=== PATIENT | male | born 1965 | race Caucasian/White ===

== ENCOUNTER → 2016-10-12 | Outpatient (REF) | payer OTHER ==
[~2016-10-12] MED LIST: MOBI15TA PO
[2016-10-12 13:30] LABS: ALBUMIN 3.8 GM/DL (3.2-5.2); ALBUMIN/GLOBULIN RATIO 1.19 (1.00-1.93); ALKALINE PHOSPHATASE 61 U/L (45-117); ALT/SGPT 24 U/L (12-78); ANION GAP 9 MEQ/L (8-16); AST/SGOT 13 U/L (15-37); BILIRUBIN,TOTAL 0.7 MG/DL (0.2-1.0); BLOOD UREA NITROGEN 11 MG/DL (7-18); CALCIUM LEVEL 9.1 MG/DL (8.5-10.1); CARBON DIOXIDE LEVEL 25 MEQ/L (21-32); CHLORIDE LEVEL 105 MEQ/L (98-107); CHOLESTEROL LEVEL 153 MG/DL (<200); CREATININE FOR GFR 1.17 MG/DL (0.70-1.30); GLOMERULAR FILTRATION RATE > 60.0 (>56); GLUCOSE, FASTING 93 MG/DL (70-105); POTASSIUM SERUM 4.1 MEQ/L (3.5-5.1); SODIUM LEVEL 139 MEQ/L (136-145); TRIGLYCERIDES LEVEL 53 MG/DL (<150)
== END ==
LOC: M SFHCPLAZ 08:25
PROVIDERS: ATTEND Physician Assistant
DX: Z13.220 Encounter for screening for lipoid disorders (principal); Z12.5 Encounter for screening for malignant neoplasm of prostate

== ENCOUNTER → 2018-04-12 | Outpatient (REF) | payer OTHER ==
[2018-04-12 12:21] LABS: ALBUMIN 3.7 GM/DL (3.2-5.2); ALBUMIN/GLOBULIN RATIO 1.16 (1.00-1.93); ALKALINE PHOSPHATASE 64 U/L (45-117); ALT/SGPT 22 U/L (12-78); ANION GAP 9 MEQ/L (8-16); AST/SGOT 10 U/L (7-37); BILIRUBIN,TOTAL 0.5 MG/DL (0.2-1.0); BLOOD UREA NITROGEN 11 MG/DL (7-18); CALCIUM LEVEL 8.9 MG/DL (8.5-10.1); CARBON DIOXIDE LEVEL 26 MEQ/L (21-32); CHLORIDE LEVEL 105 MEQ/L (98-107); CHOLESTEROL LEVEL 158 MG/DL (<200); CREATININE FOR GFR 1.07 MG/DL (0.70-1.30); GLOMERULAR FILTRATION RATE > 60.0 (>56); GLUCOSE, FASTING 79 MG/DL (70-100); HDL CHOLESTEROL 50 MG/DL (>40); LDL CHOLESTEROL 88 MG/DL (<100); NON-HDL-C 108 MG/DL; POTASSIUM SERUM 4.5 MEQ/L (3.5-5.1); PSA SCREENING 1.5 NG/ML (< 4.0); SODIUM LEVEL 140 MEQ/L (136-145); TOTAL PROTEIN 6.9 GM/DL (6.4-8.2); TRIGLYCERIDES LEVEL 102 MG/DL (<150)
[2018-04-12 12:23] LABS: TOTAL 25(OH) VITAMIN D 30.7 NG/ML (30.0-100.0)
== END ==
LOC: M SFHCPLAZ 09:27
DX: Z13.220 Encounter for screening for lipoid disorders (principal); Z13.21 Encounter for screening for nutritional disorder; Z12.5 Encounter for screening for malignant neoplasm of prostate

== ENCOUNTER 2018-04-27 09:14 | Emergency (ER) | payer OTHER, BC ==
[~2018-04-27] VITALS: Ht 182.9 cm; Wt 104.5 kg
[2018-04-27 09:14] VITALS: BP 137/85
[2018-04-27] MEDS ORDERED: IBUP-1022 PO (09:22)
--- NOTE | 2018-04-27 10:10 | REP ---
Clinical: Trauma. Fall on ice. Technique: Internal rotation, external rotation, and Y view left shoulder . Findings: No acute fracture or dislocation. The acromioclavicular and glenohumeral joints are intact. No periarticular calcifications or degenerative changes are appreciated. Sub acromial space is normal. Surrounding soft tissues are unremarkable. Impression: Generalized age-related changes. No acute fracture or dislocation. Electronically Signed by Jose Juan Link MD 04/27/2018 10:01 A
--- NOTE | 2018-04-27 10:11 | REP ---
Clinical: Trauma. Fall on ice. Technique: AP and lateral views of the left humerus. Findings: Generalized age-related changes at the shoulder and elbow joint. No acute fracture or dislocation. No subcutaneous emphysema or foreign body. Impression: No acute fracture or dislocation. Electronically Signed by Jose Juan Link MD 04/27/2018 10:01 A
== END 2018-04-27 10:28 | disposition home or self-care (01) ==
LOC: M ED 09:14
DX: S40.012A Contusion of left shoulder, initial encounter (principal); W00.0XXA Fall on same level due to ice and snow, initial encounter; Y92.89 Other specified places as the place of occurrence of the external cause; Y99.0 Civilian activity done for income or pay

== ENCOUNTER 2018-05-21 11:37 | Emergency (ER) | payer BC, OTHER ==
[~2018-05-21] VITALS: Ht 182.9 cm; Wt 104.5 kg
[~2018-05-21 11:37] MED LIST changes: +IBUP-1022 PO
[2018-05-21] MEDS ORDERED: KETOROLAC 30 MG/ML VIAL (J1885) IM ONE (13:00)
[2018-05-21 13:19] LABS: BASO % 0.4 % (0.0-1.0); EOS # 0.2 10^3/uL (0.0-0.50); EOS % 1.7 % (0.0-3.0); HEMATOCRIT 44.7 % (42.0-52.0); HEMOGLOBIN 16.1 g/dl (13.5-17.5); LYMPH % 10.6 % (24.0-44.0); MEAN CORPUSCULAR HEMOGLOBIN 31.4 pg (27.0-33.0); MEAN CORPUSCULAR VOLUME 87.1 fl (80.0-96.0); MONO # 1.1 10^3/uL (0.0-0.8); MONO % 11.5 % (0.0-5.0); NEUTROPHILS # 7.2 10^3/uL (1.8-7.7); NEUTROPHILS % 75.5 % (36.0-66.0); PLATELET COUNT, AUTOMATED 310 10^3/uL (150-450); RED BLOOD COUNT 5.13 10^6/uL (4.30-6.10); WHITE BLOOD COUNT 9.6 10^3/uL (4.0-10.0)
[2018-05-21 13:46] LABS: ERYTHROCYTE SEDIMENTATION RATE 37 mm/hr (0-20)
[2018-05-21 13:46] LABS: BLOOD UREA NITROGEN 13 MG/DL (7-18); CALCIUM LEVEL 8.9 MG/DL (8.5-10.1); CARBON DIOXIDE LEVEL 26 MEQ/L (21-32); CHLORIDE LEVEL 101 MEQ/L (98-107); CREATININE FOR GFR 0.94 MG/DL (0.70-1.30); GLOMERULAR FILTRATION RATE > 60.0 (>56); GLUCOSE, FASTING 94 MG/DL (70-100); POTASSIUM SERUM 3.9 MEQ/L (3.5-5.1); SODIUM LEVEL 135 MEQ/L (136-145)
[2018-05-21 14:40] VITALS: BP 122/75
[2018-05-29] MEDS ORDERED: NORCOTAB PO (12:28)
== END 2018-05-21 15:33 | disposition home or self-care (01) ==
LOC: M ED 11:37
DX: R03.0 Elevated blood-pressure reading, without diagnosis of hypertension (principal); E87.1 Hypo-osmolality and hyponatremia; R79.82 Elevated C-reactive protein (CRP); R10.9 Unspecified abdominal pain; R19.7 Diarrhea, unspecified; R39.198 Other difficulties with micturition; K57.92 Diverticulitis of intestine, part unspecified, without perforation or abscess without bleeding; Z77.098 Contact with and (suspected) exposure to other hazardous, chiefly nonmedicinal, chemicals; Z79.1 Long term (current) use of non-steroidal anti-inflammatories (NSAID)
CPT/HCPCS: 36415; 80048; 81001; 85025; 85652; 86140; 87507; 96372; 99284; J1885

== ENCOUNTER 2018-05-24 11:13 | Inpatient (IN) | payer BC, OTHER ==
[~2018-05-24] VITALS: Ht 182.9 cm; Wt 100.5 kg
[2018-05-24 11:53] LABS: BASO % 0.4 % (0.0-1.0); EOS # 0.1 10^3/uL (0.0-0.50); EOS % 1.1 % (0.0-3.0); HEMATOCRIT 40.2 % (42.0-52.0); HEMOGLOBIN 14.5 g/dl (13.5-17.5); LYMPH % 9.3 % (24.0-44.0); MEAN CORPUSCULAR HEMOGLOBIN 31.6 pg (27.0-33.0); MEAN CORPUSCULAR HGB CONC 36.1 g/dl (32.0-36.5); MEAN CORPUSCULAR VOLUME 87.6 fl (80.0-96.0); MONO # 1.4 10^3/uL (0.0-0.8); MONO % 12.8 % (0.0-5.0); NEUTROPHILS # 8.3 10^3/uL (1.8-7.7); NEUTROPHILS % 75.9 % (36.0-66.0); PLATELET COUNT, AUTOMATED 323 10^3/uL (150-450); RED BLOOD COUNT 4.59 10^6/uL (4.30-6.10); WHITE BLOOD COUNT 10.9 10^3/uL (4.0-10.0)
[2018-05-24 12:02] LABS: APPEARANCE, URINE CLEAR (CLEAR); BACTERIA, URINE AUTO NEGATIVE (NEGATIVE); BILIRUBIN, URINE AUTO NEGATIVE (NEGATIVE); BLOOD, URINE BLOOD NEGATIVE (NEGATIVE); COLOR, URINE YELLOW (YELLOW); GLUCOSE, URINE (UA) AUTO NEGATIVE (NEGATIVE); KETONE, URINE AUTO TRACE mg/dL (NEGATIVE); LEUKOCYTE ESTERASE, URINE AUTO NEGATIVE (NEGATIVE); MUCUS, URINE SMALL (NEGATIVE); NITRITE, URINE AUTO NEGATIVE (NEGATIVE); PROTEIN, URINE AUTO NEGATIVE (NEGATIVE); RBC, URINE AUTO 3 /HPF (0-3); SPECIFIC GRAVITY URINE AUTO 1.013 (1.002-1.035); SQUAMOUS EPITHELIAL CELL UR AU 0 /HPF (0-6); UROBILINOGEN, URINE AUTO 0.2 mg/dL (0.0-2.0); WBC, URINE AUTO 1 /HPF (0-3)
[2018-05-24 12:13] LABS: ERYTHROCYTE SEDIMENTATION RATE 35 mm/hr (0-20)
[2018-05-24] MEDS ORDERED: MORPHINE 4 MG/ML 1ML VIAL/SYRINGE (J2270) IV ONE (12:15)
[2018-05-24] MEDS ORDERED: NS 1,000 ML IV ONE (12:15)
[2018-05-24 12:19] LABS: ALBUMIN 3.4 GM/DL (3.2-5.2); ALT/SGPT 27 U/L (12-78); BILIRUBIN,DIRECT 0.2 MG/DL (0.0-0.2); BILIRUBIN,TOTAL 0.8 MG/DL (0.2-1.0); BLOOD UREA NITROGEN 13 MG/DL (7-18); C REACTIVE PROTEIN QUANTITATIV 8.46 MG/DL (0.00-0.30); CALCIUM LEVEL 8.7 MG/DL (8.5-10.1); CARBON DIOXIDE LEVEL 22 MEQ/L (21-32); CHLORIDE LEVEL 105 MEQ/L (98-107); CREATININE FOR GFR 0.88 MG/DL (0.70-1.30); GLOMERULAR FILTRATION RATE > 60.0 (>56); GLUCOSE, FASTING 97 MG/DL (70-100); LIPASE 73 U/L (73-393); POTASSIUM SERUM 3.8 MEQ/L (3.5-5.1); SODIUM LEVEL 136 MEQ/L (136-145); TOTAL PROTEIN 6.6 GM/DL (6.4-8.2)
[2018-05-24] MEDS: GASTROGRAFIN SOLUTION 30ML PO SCH ×2 (12:37→13:10)
[2018-05-24] MEDS ORDERED: HYDROMORPHONE HCL 0.5 MG/ 0.5 ML SYRINGE (J1170 PER 1) IV ONE (13:45)
--- NOTE | 2018-05-24 15:29 | REP ---
CT abdomen and pelvis without IV but with oral contrast: History: Bilateral lower abdominal pain. Constipation. Urinary symptoms. Comparison CT study: January 19, 2015. CT findings: Preliminary digital serologist radiograph demonstrates mild gaseous distension of multiple small bowel loops as well as the transverse colon consistent with ileus. The lung bases are clear. The liver and the spleen are normal in size and homogeneous in texture. No adrenal lesion is seen on either side. Gallbladder is unremarkable on CT imaging. Pancreas shows no evidence of cyst or mass. No retroperitoneal mass or adenopathy is seen. The kidneys are morphologically intact. No hydronephrosis, intrarenal calculus, or mass lesion is observed. There is no evidence of free intraperitoneal air. CT images of the abdomen and pelvis demonstrate mural thickening and pericolonic streaking affecting the sigmoid colon consistent with acute diverticulitis. There is a pericolonic abscess in the central pelvis containing air and a small quantity of fluid superior to the involved loop of sigmoid colon. The abscess measures 4.7 cm right to left by 5.4 cm anterior to posterior by 3.9 cm cranial to caudal. It does not appear to be accessible to percutaneous drainage. Normal appendix is seen. No other abscess is appreciated. There are some mildly dilated air-filled small bowel loops in the central abdomen consistent with reactive ileus. No obstructive lesion is seen. Urinary bladder, prostate and seminal vesicles are unremarkable. Bone window settings show no bony destructive lesion. Impression: Findings consistent with acute diverticulitis sigmoid colon with a pericolonic abscess in the central abdomen 5.4 cm in greatest diameter. This does not appear to be accessible to percutaneous drainage. No evidence of free air. Electronically Signed by Harsh Seals MD 05/24/2018 05:38 P
[2018-05-24] MEDS ORDERED: PIPERACILLIN/TAZOBACTAM SOD 3.375 GM in D5W MINI-BAG PLUS 50 ML IV ONE (16:15)
[2018-05-24] MEDS ORDERED: MORPHINE 4 MG/ML 1ML VIAL/SYRINGE (J2270) IV PRN ×2 (19:15)
[2018-05-24] MEDS ORDERED: ONDANSETRON 4MG/2ML VIAL (J2405) IV PRN (19:15)
[2018-05-24] MEDS ORDERED: ACETAMINOPHEN TAB 650MG DOSE (2X325MG) PO PRN (19:15)
[2018-05-24] MEDS: LR 1,000 ML IV SCH (19:38)
[2018-05-24] MEDS: NORCO, ANEXSIA 5/325MG TABLET (HYDROcodone/ACETAMINOPHEN) PO PRN (20:19)
[2018-05-24 23:30] VITALS: BP 115/54
[2018-05-25] MEDS: PIPERACILLIN/TAZOBACTAM SOD 3.375 GM in D5W MINI-BAG PLUS 50 ML IV SCH ×5 (00:09→22:16)
[2018-05-25] MEDS: DOCUSATE SODIUM 100 MG CAP PO SCH ×3 (00:09→20:20)
[2018-05-25 04:00] VITALS: BP 114/78
[2018-05-25] MEDS: NORCO, ANEXSIA 5/325MG TABLET (HYDROcodone/ACETAMINOPHEN) PO PRN ×5 (05:03→22:17)
--- NOTE | 2018-05-25 05:35 | HPE ---
DATE OF ADMISSION: 05/24/2018 ADMISSION DIAGNOSIS: Sigmoid diverticulitis with abscess. HISTORY OF THE PRESENT ILLNESS: The patient is a 53-year-old generally healthy man who presented to the emergency department for evaluation of some continuing lower abdominal pain. The patient reports that he has had several episodes of diverticulitis in the past. He reports episodes of particularly left lower quadrant discomfort that may last for 1-3 days and then resolve spontaneously. He has never been hospitalized. He is unsure or whether he has been treated with antibiotics previously though review of his hospital records reveals an ER visit from December of 2014 at which time he had a CT scan of the abdomen and pelvis showing changes in the sigmoid colon consistent with diverticulitis. He was apparently treated with ciprofloxacin and Flagyl. He did follow up with Dr. Huff for a colonoscopy which showed some small diverticuli in the sigmoid. The patient reported that he had developed some lower abdominal discomfort last week on or about Wednesday, May 20, 2018. He was seen in the emergency department on the May 21, 2018. He describes pain in the left and right lower quadrants as well as small areas of pain posteriorly in the area just adjacent to the posterior-superior iliac spines. He was seen in the emergency department but had no imaging. He was discharged home to follow up if pain worsened. He has noticed worsening of his discomfort over the last 3 days and presented again to the emergency department today. A CT scan done today shows a definite abscess on the superior aspect of the midportion of his sigmoid colon. There is no evidence of free air or free fluid. Because of the abscess I was consulted and the patient is now admitted for management of his apparent diverticular abscess. ALLERGIES: The patient denies any known drug allergies. MEDICATIONS: The patient reports no routine prescription medications. MEDICAL HISTORY: The patient denies any active medical problems other than his current abdominal pain. PAST SURGICAL HISTORY: Surgical history is significant only for a colonoscopy in 2015. SOCIAL HISTORY: The patient is single. He uses smokeless tobacco and drinks occasionally. FAMILY HISTORY: Shows no significant heritable medical conditions. REVIEW OF SYSTEMS: The patient denies any history of chronic severe headaches or any seizure. He has no chest pains or palpitations. He denies cough, wheezing or sputum production. His abdominal issues are addressed in his history of the present illness. He denies any dysuria or hematuria. He has no particular bone or joint issues. He has no history of deep vein thrombosis (DVT) or pulmonary embolus. There are no endocrine issues. PHYSICAL EXAMINATION: GENERAL: Physical exam reveals a pleasant somewhat uncomfortable appearing middle-aged man sitting on the edge of the hospital stretcher. He is alert and oriented. VITAL SIGNS: Most recent vital signs showed a temperature of 98.6 with a pulse of 76, respirations of 20 and a blood pressure of 150/80. Room air oxygen saturation was normal. SKIN: Examination showed that the skin was warm and dry. HEENT: Sclerae are anicteric. Mucous membranes are moist to slightly tacky. The neck is supple without cervical mass or bruit. HEART: Exam shows a regular rate and rhythm without murmur. LUNGS: The lungs are clear to auscultation bilaterally. ABDOMEN: The abdomen is mildly obese. There are no scars evident. He has no evident hernia. He does have some bowel sounds auscultated in all four quadrants. With percussion there is tenderness noted low in the left lower quadrant. On palpation there is moderate direct tenderness low in the right lower quadrant. There is some much milder tenderness on palpation in the right lower quadrant. There is no palpable mass. There is no rebound. EXTREMITIES: Show no peripheral edema. He has palpable radial and pedal pulses. LABORATORIES: Laboratory studies include a white count of 11,000, hemoglobin 14, hematocrit of 40 and a platelet count of 323,000. Differential count shows 76% neutrophils, 9% lymphocytes and 13% monocytes. Chemistry profile shows normal electrolytes, BUN, creatinine and glucose. The liver function tests are normal. C-reactive protein is 8.5 and his total protein and albumin are normal. Lipase is normal at 73. Urinalysis shows no evidence of urinary tract infection. CT scan of the abdomen and pelvis showed findings consistent with acute diverticulitis of the sigmoid colon with a 5.4 cm pericolonic abscess. The radiologist noticed that this did not appear to be accessible to percutaneous drainage. There is no evidence of free air. IMPRESSION: Sigmoid diverticulitis with abscess. PLAN: The patient was counseled that he has a definite abscess present. The radiologist felt that this was not accessible for percutaneous drainage. I have recommended that we admit the patient and start him on intravenous antibiotics with piperacillin tazobactam. I would keep him nothing by mouth for today but consider advancing him to some liquids tomorrow. Pain medications will be made available as needed. The patient was counseled that treatment solely with antibiotics may in some cases resolve the abscess though a better result might be expected with drainage of the abscess and treatment with antibiotics. Certainly we could consider surgical drainage of his abscess. I did advise him that if the abscess were to rupture that peritonitis would ensue and surgical intervention would be necessary. Unfortunately if this is done acutely with unprepped bowel the usual surgical approach would be a colonic resection with a temporary colostomy. It may be that with antibiotic treatment the abscess would grow to a point without rupture that a percutaneous drainage might be an option. We could also consider trying to get him bowel prepped and proceed with an urgent sigmoid colectomy and anastomosis. We will be able to discuss these options over the next few days as we see how he responds to the antibiotics. IAN
[2018-05-25 07:46] LABS: BASO % 0.2 % (0.0-1.0); EOS # 0.1 10^3/uL (0.0-0.50); HEMOGLOBIN 13.9 g/dl (13.5-17.5); LYMPH % 10.7 % (24.0-44.0); MEAN CORPUSCULAR HEMOGLOBIN 31.2 pg (27.0-33.0); MEAN CORPUSCULAR HGB CONC 35.6 g/dl (32.0-36.5); MEAN CORPUSCULAR VOLUME 87.6 fl (80.0-96.0); MONO # 1.3 10^3/uL (0.0-0.8); MONO % 13.1 % (0.0-5.0); NEUTROPHILS # 7.2 10^3/uL (1.8-7.7); NEUTROPHILS % 74.6 % (36.0-66.0); PLATELET COUNT, AUTOMATED 296 10^3/uL (150-450); RED BLOOD COUNT 4.45 10^6/uL (4.30-6.10); WHITE BLOOD COUNT 9.7 10^3/uL (4.0-10.0)
[2018-05-25 08:00] VITALS: BP 123/79
[2018-05-25] MEDS: PANTOPRAZOLE 40MG INJ (PROTONIX) (C9113) IV SCH (08:59)
[2018-05-25] MEDS: LR 1,000 ML IV SCH ×3 (09:40→20:20)
[2018-05-25 12:00] VITALS: BP 118/80
[2018-05-25 16:00] VITALS: BP 130/78
[2018-05-25 20:00] VITALS: BP 119/72
[2018-05-26] VITALS: BP 122/71
[2018-05-26 04:11] VITALS: BP 112/64
[2018-05-26] MEDS: PIPERACILLIN/TAZOBACTAM SOD 3.375 GM in D5W MINI-BAG PLUS 50 ML IV SCH ×4 (04:13→22:13)
[2018-05-26] MEDS: LR 1,000 ML IV SCH ×2 (05:33→11:15)
[2018-05-26 08:00] VITALS: BP 130/77
[2018-05-26] MEDS: DOCUSATE SODIUM 100 MG CAP PO SCH ×3 (09:22→23:21)
[2018-05-26] MEDS: PANTOPRAZOLE 40MG INJ (PROTONIX) (C9113) IV SCH (09:22)
[2018-05-26 16:00] VITALS: BP 139/84
[2018-05-26] MEDS: NORCO, ANEXSIA 5/325MG TABLET (HYDROcodone/ACETAMINOPHEN) PO PRN ×2 (17:00→22:18)
[2018-05-26 21:01] VITALS: BP 110/68
[2018-05-27] VITALS: BP 102/62
[2018-05-27] MEDS: PIPERACILLIN/TAZOBACTAM SOD 3.375 GM in D5W MINI-BAG PLUS 50 ML IV SCH ×4 (04:42→22:57)
[2018-05-27 04:45] VITALS: BP 112/77
[2018-05-27] MEDS: NORCO, ANEXSIA 5/325MG TABLET (HYDROcodone/ACETAMINOPHEN) PO PRN ×4 (04:56→22:57)
[2018-05-27 06:38] LABS: BASO # 0.1 10^3/uL (0.0-0.2); BASO % 0.6 % (0.0-1.0); EOS # 0.1 10^3/uL (0.0-0.50); EOS % 1.2 % (0.0-3.0); HEMATOCRIT 40.4 % (42.0-52.0); HEMOGLOBIN 14.1 g/dl (13.5-17.5); LYMPH # 0.9 10^3/uL (1.5-4.5); LYMPH % 10.5 % (24.0-44.0); MEAN CORPUSCULAR HGB CONC 34.9 g/dl (32.0-36.5); MEAN CORPUSCULAR VOLUME 88.8 fl (80.0-96.0); MONO % 12.2 % (0.0-5.0); NEUTROPHILS # 6.3 10^3/uL (1.8-7.7); NEUTROPHILS % 75.1 % (36.0-66.0); PLATELET COUNT, AUTOMATED 322 10^3/uL (150-450); RED BLOOD COUNT 4.55 10^6/uL (4.30-6.10); WHITE BLOOD COUNT 8.4 10^3/uL (4.0-10.0)
[2018-05-27 08:00] VITALS: BP 141/84
[2018-05-27] MEDS: PANTOPRAZOLE 40MG INJ (PROTONIX) (C9113) IV SCH (09:14)
[2018-05-27] MEDS: DOCUSATE SODIUM 100 MG CAP PO SCH ×2 (09:14→20:39)
[2018-05-27 12:00] VITALS: BP 112/75
[2018-05-27 16:00] VITALS: BP 102/66
[2018-05-27 20:00] VITALS: BP 117/78
[2018-05-28] VITALS: BP 122/87
[2018-05-28 04:00] VITALS: BP 106/76
[2018-05-28] MEDS: PIPERACILLIN/TAZOBACTAM SOD 3.375 GM in D5W MINI-BAG PLUS 50 ML IV SCH ×2 (04:52→11:21)
--- NOTE | 2018-05-28 06:54 | IPN ---
DATE: 05/27/2018 HISTORY: The patient is now hospital day #3 post admission for management of a diverticular abscess of the sigmoid colon. He has generally been feeling better and has been tolerating some full liquids. He has noted some flatus but no real bowel movement. He has been voiding well. Vital signs show that he has been afebrile over the past 24 hours. His pulse in the 50s and 60s. Blood pressure is good and his room air oxygen saturations are normal. Intake and output show that yesterday he had 5200 mL in with 3700 out. He does have several bowel movements recorded yesterday. PHYSICAL EXAMINATION: The patient is resting quietly in bed. He appears comfortable. Heart exam shows a regular rate and rhythm and he is not tachycardic. The abdomen is soft and he has perhaps some minimal mid lower abdominal tenderness in the suprapubic area. Laboratory studies show today a white count of 8 with a hemoglobin of 14, hematocrit of 40 and platelet count of 322,000. Differential count shows 75% neutrophils, 10% lymphocytes and 12% monocytes. IMAGING STUDIES: He had a repeat pelvic CT today. This was supposed to be done with oral contrast but this was not administered before the study. Even though it is a noncontrast study, it shows the abscess quite well. There does not appear to be any significant change to my review and the official reading is pending. The abscess does not appear to compromise the lumen of the adjacent sigmoid colon at all. IMPRESSION: Persistent pericolonic abscess presumed secondary to diverticulitis and perforation. PLAN: Patient has done well over the last three days. We will advance his diet to regular. He has had marked improvement in his pain. I will convert him to oral antibiotics and if he tolerates the regular diet and oral antibiotics for another day or so, I will discharge him home on oral antibiotics to follow up in the office. IAN
--- NOTE | 2018-05-28 07:11 | IPN ---
DATE: 05/25/2018 HISTORY: The patient was admitted yesterday with a pelvic abscess secondary to diverticulitis. This does not appear to be amendable to percutaneous drainage. He was started on piperacillin tazobactam for antibiotic coverage. He has been kept nothing by mouth (n.p.o.) since admission. Vital signs: Show that he has been afebrile actually since admission. His pulse is in the 70s and 60s. Blood pressure is good, and his room air oxygen saturation is within the normal range. Intake and output shows that yesterday his output was not clearly recorded. He has had a good urine output so far today and does report several small bowel movements. PHYSICAL EXAMINATION: The patient is alert and oriented. Heart and lung exams are unremarkable. The abdomen is nondistended. He has bowel sounds present. The abdomen is soft, and there is some tenderness low in the midline, though he seems less tender than yesterday. Laboratory studies show that he has a white count of 10,000 with a hemoglobin of 14, hematocrit of 39 and a platelet count of 296,000. Differential count shows 75% neutrophils, 11% lymphocytes and 13% monocytes. IMPRESSION: The patient is doing well on antibiotic treatment for his pelvic abscess from diverticulitis. The abscess was not felt to be amendable to drainage percutaneously according to the radiologist's report. PLAN: The patient will be continued on his IV antibiotics. He appears to be responding well so far. I will start him on some clear liquids and see how he does with these today. The antibiotics will be continued. He was encouraged to be up ambulating. If he continues to do well, we will ultimately convert him to oral antibiotics and arrange outpatient followup. IAN
--- NOTE | 2018-05-28 07:12 | IPN ---
DATE: 05/26/2018 HISTORY: The patient was admitted two days ago for management of a pelvic abscess, presumably from perforated diverticulitis. His discomfort has diminished significantly since admission and treatment with antibiotics. He remains on piperacillin/tazobactam. He has tolerated clear liquids well with no evidence of nausea or vomiting. His urine output is brisk. VITAL SIGNS: The patient has been afebrile over the last 24 hours. His pulse is in the 60s. Blood pressure and room air oxygen saturation are normal. Intake and output shows that he has had 1600 in with 1600 out yesterday. His urine output today so far has been quite brisk as he has been taking clear liquids well while receiving IV fluid. PHYSICAL EXAMINATION: The patient appears fairly comfortable. The abdomen is soft with some fairly mild suprapubic tenderness low in the midline. The patient has no new labs today. IMPRESSION: The patient appears to be doing well with antibiotic therapy for his abscess. He has tolerated the clear liquids well. PLAN: The patient's IV will be saline locked. He will be started on full liquids. Will continue his piperacillin/tazobactam. I will consider repeating his CT scan to see if there is stability of his abscess tomorrow. IAN
[2018-05-28 08:00] VITALS: BP 129/85
[2018-05-28] MEDS: DOCUSATE SODIUM 100 MG CAP PO SCH ×2 (09:16→20:47)
[2018-05-28] MEDS: PANTOPRAZOLE 40MG INJ (PROTONIX) (C9113) IV SCH (09:16)
[2018-05-28] MEDS: NORCO, ANEXSIA 5/325MG TABLET (HYDROcodone/ACETAMINOPHEN) PO PRN ×3 (09:17→19:07)
[2018-05-28 12:30] VITALS: BP 107/57
--- NOTE | 2018-05-28 13:55 | IPN ---
DATE: 05/28/2018 HISTORY: The patient was admitted on the 05/24/2018 with a pelvic abscess associated with diverticulitis of the sigmoid colon. He was started on piperacillin tazobactam and his pain has resolved. He was advanced to a regular diet effective this morning. He remains afebrile and is up walking ad milly. Vital signs show that he has been afebrile for the past 24 hours. His pulse is in the 60s generally with a blood pressure that is normal and a normal room air oxygen saturation. Intake and output shows that yesterday he had 3400 recorded in with 2100 recorded out. He has had several bowel movements yesterday and also today which he reports have been soft. Physical exam shows that the abdomen is flat. He has bowel sounds present. The abdomen is soft and without any tenderness on palpation today. IMAGING: The patient had a repeat CT of the pelvis yesterday. This was done without contrast as the oral contrast was not given prior to the study. It does show that the abscess appears to be approximately the same size as it was on his prior study several days ago. There is certainly no evidence of any impingement on the lumen of the sigmoid colon. IMPRESSION: The patient appears to be doing well with antibiotic treatment for his abscess which was not amendable to a percutaneous drainage. PLAN: The patient will be monitored on his regular diet until tomorrow. I will convert his piperacillin tazobactam to oral ciprofloxacin and Flagyl. If he is doing well tomorrow we will discharge him home on oral antibiotics. IAN
[2018-05-28] MEDS: metroNIDAZOLE (FLAGYL) 500 MG TAB PO SCH ×2 (14:28→20:47)
[2018-05-28 16:00] VITALS: BP 128/76
[2018-05-28] MEDS: CIPROFLOXACIN 500 MG TAB PO SCH (18:25)
[2018-05-28 20:00] VITALS: BP 112/72
[2018-05-29] VITALS: BP 114/67
[2018-05-29] MEDS: NORCO, ANEXSIA 5/325MG TABLET (HYDROcodone/ACETAMINOPHEN) PO PRN ×2 (00:18→06:07)
[2018-05-29 04:00] VITALS: BP 110/71
[2018-05-29] MEDS: metroNIDAZOLE (FLAGYL) 500 MG TAB PO SCH (06:06)
[2018-05-29] MEDS: CIPROFLOXACIN 500 MG TAB PO SCH (06:06)
[2018-05-29] MEDS: PANTOPRAZOLE 40MG INJ (PROTONIX) (C9113) IV SCH (08:22)
[2018-05-29] MEDS: DOCUSATE SODIUM 100 MG CAP PO SCH (08:22)
[2018-05-29 08:38] VITALS: BP 107/70
[2018-05-29] MEDS ORDERED: FLAG500T PO (12:28)
[2018-05-29] MEDS ORDERED: CIPR-249 PO (12:28)
[2018-05-29] MEDS ORDERED: NORCOTAB PO (12:28)
--- NOTE | 2018-05-29 12:40 | IPN ---
DATE: 05/29/2018 HISTORY: The patient was admitted on 05/24/2018 with diverticulitis with a pelvic abscess that appeared to lie within the mesentery of the sigmoid. He was maintained on piperacillin/tazobactam and converted to oral Cipro and Flagyl yesterday. He was advanced to a regular diet yesterday, which he tolerated well. He did have slightly more pain yesterday but has been having multiple bowel movements and voiding well. Vital signs: Show that he has been afebrile over the past 24 hours. Pulse is in the 60s to 70s. Blood pressure is good and his room air saturations are normal. Intake and output shows that yesterday he had almost 4 liters of oral liquids and an excellent urine output. PHYSICAL EXAMINATION: The patient is sitting quietly on the hospital bed looking comfortable. The abdomen is flat with active bowel sounds and the abdomen is soft and without significant tenderness. The patient has no new laboratory studies today. IMPRESSION: Sigmoid diverticulitis with abscess. PLAN: The patient has been tolerating oral antibiotics and a regular diet since yesterday. He will be discharged home today. I will give him prescriptions for 10 days of ciprofloxacin and Flagyl. I will provide him 20 [place] tablets to take on an as-needed basis over the next few days for pain. He has requested he be off work the next week and this seems reasonable, and he will be given a slip allowing him to return to work on 06/06/2018. He was advised that if he notes a change in his status with increasing pain, fevers or chills or other problems, he should call the office and otherwise I will plan to see him back in about 2 weeks. IAN
--- NOTE | 2018-06-02 21:24 | DSES ---
DATE OF ADMISSION: 05/24/2018 DATE OF DISCHARGE: 05/29/2018 ADMISSION DIAGNOSIS: Sigmoid diverticulitis with abscess. HISTORY OF PRESENT ILLNESS The patient is a 53-year-old generally healthy man who presented to the emergency department for evaluation of some continuing lower abdominal pain. The patient reports that he has had several episodes of diverticulitis in the past. He reports episodes consisting of particularly left lower quadrant discomfort that may last for 1-3 days and then resolve spontaneously. He has never been hospitalized and is actually unsure if he has been treated with antibiotics previously though review of his record shows that in December 2014 he was seen in the emergency department and started on ciprofloxacin and Flagyl for sigmoid diverticulitis. A colonoscopy and followup with Dr. Huff showed some small diverticuli in the sigmoid. The patient reported that he had developed some lower abdominal discomfort last week on or about WednesdayMay 20. He was seen on May 21 in the emergency department. He reported pain in the left and right lower quadrants as well as pain in his low back overlying the sacrum adjacent to the posterior superior iliac spines. He had no imaging and was not diagnosed definitively and was sent home without any further treatment. He noted worsening of his discomfort over the last 3 days and was seen in the emergency department on the . CT scan showed a definite abscess on the superior aspect the midportion of the sigmoid colon with evidence of some sigmoid diverticulitis. There was no free fluid or free air. Because of the abscess I was consulted and the patient was admitted for treatment. The radiologist did note at the time of the CT scan that his abscess was not amendable to a percutaneous drainage. HOSPITAL COURSE The patient was admitted to the hospital and started on piperacillin tazobactam for antibiotic coverage. Because his abscess was not amendable to percutaneous drainage, we discussed nonoperative non drainage management with just antibiotics versus considering surgery and elected just to treat with antibiotics and monitor him closely. With treatment, he did note a decrease in his level of discomfort. The pain in his back diminished and resolved. His lower abdominal discomfort also diminished and effectively resolved. His laboratory studies showed a slow drop in his white blood cell count on the from 11,000 to 8000 on the . A repeat CT of the pelvis alone was done on May 27 to see if there had been any significant change in his abscess. This was done, particularly to look for any evidence of worsening despite his antibiotics and the study showed no significant change in the size of his abscess. His diet was advanced back to a regular diet which she tolerated well and he was discharged home on May 29, 2018. FINAL DIAGNOSIS Sigmoid diverticulitis with abscess. DISPOSITION The patient was discharged home on May 29. He was advised that the abscess might improve with antibiotics although there was a chance that it would continue to enlarge and subsequently require further treatment. He was advised to return to the emergency department if his pain worsened suddenly or he noticed other signs of progressive infection. He was to take a regular diet. He could shower as desired and follow activity as tolerated. He was advised to avoid constipation or straining and to use a stool softener or mild laxative as needed. He was provided a prescription for [place] to take on an as-needed basis and also provided with 10-day prescriptions for ciprofloxacin and metronidazole. He was to followup in my office in 2 weeks or sooner for problems. IAN
== END 2018-05-29 13:30 | disposition home or self-care (01) | DRG 244 ==
LOC: M ED 11:13 → M ED INP 19:15 → M PED 23:10
PROVIDERS: ADMIT Surgery; ATTEND Surgery
DX: K57.20 Diverticulitis of large intestine with perforation and abscess without bleeding (principal)

== ENCOUNTER 2018-06-01 18:08 | Emergency (ER) | payer BC, OTHER ==
[~2018-06-01] VITALS: Ht 182.9 cm; Wt 103.2 kg
[~2018-06-01 18:08] MED LIST changes: +CIPR-249 PO; +FLAG500T PO; +NORCOTAB PO
[2018-06-01] MEDS ORDERED: NS 1,000 ML IV ONE (19:00)
[2018-06-01] MEDS ORDERED: PANTOPRAZOLE 40MG INJ (PROTONIX) (C9113) IV ONE (19:00)
[2018-06-01] MEDS ORDERED: ONDANSETRON 4MG/2ML VIAL (J2405) IV ONE (19:00)
[2018-06-01] MEDS ORDERED: MORPHINE 4 MG/ML 1ML VIAL/SYRINGE (J2270) IV ONE (19:00)
[2018-06-01 19:21] LABS: BASO # 0.1 10^3/uL (0.0-0.2); BASO % 0.6 % (0.0-1.0); EOS # 0.2 10^3/uL (0.0-0.50); EOS % 1.6 % (0.0-3.0); HEMATOCRIT 41.2 % (42.0-52.0); HEMOGLOBIN 14.7 g/dl (13.5-17.5); LYMPH # 1.4 10^3/uL (1.5-4.5); LYMPH % 14.5 % (24.0-44.0); MEAN CORPUSCULAR HEMOGLOBIN 31.4 pg (27.0-33.0); MEAN CORPUSCULAR HGB CONC 35.7 g/dl (32.0-36.5); MONO # 1.2 10^3/uL (0.0-0.8); MONO % 12.2 % (0.0-5.0); NEUTROPHILS # 6.8 10^3/uL (1.8-7.7); NEUTROPHILS % 70.7 % (36.0-66.0); PLATELET COUNT, AUTOMATED 472 10^3/uL (150-450); RED BLOOD COUNT 4.68 10^6/uL (4.30-6.10); WHITE BLOOD COUNT 9.6 10^3/uL (4.0-10.0)
[2018-06-01 19:35] LABS: ALBUMIN 3.4 GM/DL (3.2-5.2); ALT/SGPT 34 U/L (12-78); BILIRUBIN,DIRECT 0.1 MG/DL (0.0-0.2); BILIRUBIN,TOTAL 0.4 MG/DL (0.2-1.0); BLOOD UREA NITROGEN 13 MG/DL (7-18); CALCIUM LEVEL 8.6 MG/DL (8.5-10.1); CARBON DIOXIDE LEVEL 23 MEQ/L (21-32); CHLORIDE LEVEL 104 MEQ/L (98-107); CREATININE FOR GFR 1.08 MG/DL (0.70-1.30); GLOMERULAR FILTRATION RATE > 60.0 (>56); GLUCOSE, FASTING 141 MG/DL (70-100); LIPASE 124 U/L (73-393); POTASSIUM SERUM 3.7 MEQ/L (3.5-5.1); SODIUM LEVEL 137 MEQ/L (136-145); TOTAL PROTEIN 6.7 GM/DL (6.4-8.2)
[2018-06-01] MEDS ORDERED: KETOROLAC 30 MG/ML VIAL (J1885) IV ONE (20:30)
[2018-06-01] MEDS ORDERED: cefTRIAXone SOD 1 GM in D5W MINI-BAG PLUS 50 ML IV ONE (20:30)
[2018-06-01] MEDS ORDERED: PERC5TAB12 PO (21:10)
[2018-06-01] MEDS ORDERED: OXYCODONE/APAP 5MG/325MG(BULK FOR ED) 1 TABLET PO ONE (21:15)
[2018-06-01 21:52] VITALS: BP 144/72
--- NOTE | 2018-06-02 07:32 | REP ---
Clinical: Diverticulitis with abscess. Technique: Axial noncontrast images from the lung bases to the pubic symphysis with coronal and sagittal re-formations. Comparison: 05/24/2018, 05/27/2018. Findings: A pelvic abscess with fluid level in the pelvis measures approximately 6.2 cm in diameter (images [id number]), and may be slightly increased when compared to prior examination. Adjacent sigmoid colon demonstrates mucosal thickening and pericolonic inflammatory stranding consistent with the prior diagnosis of acute diverticulitis. Remainder of the small and large bowel appears grossly unremarkable and without obstruction or further acute process. Liver, spleen, pancreas, gallbladder, bilateral adrenal glands and kidneys are normal for noncontrast evaluation. Further evaluation of the pelvis demonstrates normal bladder and age appropriate prostate/seminal vesicles. No ascites. No free air. No significant adenopathy. Musculoskeletal structures demonstrate age-related changes without focal osseous abnormality. Lung bases are clear. Impression: 1. Central pelvic abscess measuring approximately 6.2 cm maximal diameter with air-fluid level appears lightly increased from prior examination. 2. Mildly improving sigmoid diverticulitis. Electronically Signed by Jose Juan Link MD 06/01/2018 07:20 P
[2018-06-02] MEDS ORDERED: NORC1TAB4 PO (13:06)
[2018-06-02] MEDS ORDERED: METR-201 PO (13:06)
[2018-06-02] MEDS ORDERED: CIPR500T3 PO (13:06)
[2018-06-02] MEDS ORDERED: VITMTA PO (13:06)
[2018-06-02] MEDS ORDERED: PERC5TAB12 PO (13:06)
[2018-06-02] MEDS ORDERED: IBUPOTC PO (13:06)
== END 2018-06-01 21:54 | disposition home or self-care (01) ==
LOC: M ED 18:08
DX: K57.20 Diverticulitis of large intestine with perforation and abscess without bleeding (principal); Z79.899 Other long term (current) drug therapy; Z79.2 Long term (current) use of antibiotics
CPT/HCPCS: 74176; 80048; 80076; 83690; 85025; 96365; 96375; 99284; C9113; J0696; J1885; J2270; J2405

== ENCOUNTER 2018-06-02 10:32 | Inpatient (IN) | payer BC, OTHER ==
[~2018-06-02] VITALS: Ht 182.9 cm; Wt 103.2 kg
[~2018-06-02 10:32] MED LIST changes: +PERC5TAB12 PO
[2018-06-02 11:20] LABS: BASO % 0.5 % (0.0-1.0); EOS # 0.1 10^3/uL (0.0-0.50); EOS % 1.1 % (0.0-3.0); HEMATOCRIT 41.4 % (42.0-52.0); HEMOGLOBIN 14.3 g/dl (13.5-17.5); LYMPH # 0.9 10^3/uL (1.5-4.5); LYMPH % 11.1 % (24.0-44.0); MEAN CORPUSCULAR HGB CONC 34.5 g/dl (32.0-36.5); MEAN CORPUSCULAR VOLUME 89.8 fl (80.0-96.0); MONO # 0.9 10^3/uL (0.0-0.8); MONO % 10.8 % (0.0-5.0); NEUTROPHILS # 6.2 10^3/uL (1.8-7.7); NEUTROPHILS % 75.9 % (36.0-66.0); PLATELET COUNT, AUTOMATED 429 10^3/uL (150-450); RED BLOOD COUNT 4.61 10^6/uL (4.30-6.10); WHITE BLOOD COUNT 8.2 10^3/uL (4.0-10.0)
[2018-06-02 11:42] LABS: BLOOD UREA NITROGEN 10 MG/DL (7-18); CALCIUM LEVEL 8.6 MG/DL (8.5-10.1); CARBON DIOXIDE LEVEL 20 MEQ/L (21-32); CHLORIDE LEVEL 106 MEQ/L (98-107); CREATININE FOR GFR 1.02 MG/DL (0.70-1.30); GLOMERULAR FILTRATION RATE > 60.0 (>56); GLUCOSE, FASTING 103 MG/DL (70-100); POTASSIUM SERUM 4.3 MEQ/L (3.5-5.1); SODIUM LEVEL 136 MEQ/L (136-145)
[2018-06-02] MEDS ORDERED: MORPHINE 4 MG/ML 1ML VIAL/SYRINGE (J2270) IV PRN ×2 (12:45)
[2018-06-02] MEDS ORDERED: ONDANSETRON 4MG/2ML VIAL (J2405) IV PRN (12:45)
[2018-06-02] MEDS ORDERED: PIPERACILLIN/TAZOBACTAM SOD 3.375 GM in D5W MINI-BAG PLUS 50 ML IV SCH (13:00)
[2018-06-02] MEDS ORDERED: IBUPOTC PO (13:06)
[2018-06-02] MEDS ORDERED: PERC5TAB12 PO (13:06)
[2018-06-02] MEDS ORDERED: CIPR500T3 PO (13:06)
[2018-06-02] MEDS ORDERED: METR-201 PO (13:06)
[2018-06-02] MEDS ORDERED: VITMTA PO (13:06)
[2018-06-02] MEDS ORDERED: NORC1TAB4 PO (13:06)
[2018-06-02] MEDS ORDERED: LIDOCAINE 1% MDV 20ML VIAL As Ordered ONE (13:45)
--- NOTE | 2018-06-02 14:57 | HPE ---
DATE OF ADMISSION: 06/02/2018 ADMISSION DIAGNOSIS: Enlarging abscess adjacent to sigmoid colon diverticulitis. HISTORY OF THE PRESENT ILLNESS: The patient is a pleasant 53-year-old man who had been admitted to the hospital on the 24 of May with a history of some lower abdominal pain. He was seen in the emergency department at which time a CT scan of the abdomen and pelvis showed a definite abscess on the superior aspect of the midportion of his sigmoid colon. This was well contained and there was no evidence of free air or free fluid. The radiologist felt that the abscess was not amendable to percutaneous drainage. The patient was admitted and treated with Zosyn for antibiotic coverage. His pain diminished and resolved. He was advanced gradually to a regular diet which he tolerated well. He was converted to oral antibiotics with Cipro and Flagyl and discharged home on the 29 of May. He has been taking his medications. He was in [place] where a family member very recently underwent a cardiac transplant. He began to note increased pain primarily in his mid low back where he had noticed this previously. He took Percocet which did not completely resolve his discomfort. He was seen in the emergency department on the night of the 01 of June at which time he had a repeat CT scan that showed a persistent abscess but this appeared slightly larger. He had laboratory studies that showed a white count of 9000 with 71% neutrophils. He was discharged home to followup in the emergency department for repeat labs on the . He presented still complaining of some pain despite Percocet. I was consulted and the patient is now readmitted for drainage of his enlarging pericolonic abscess. ALLERGIES: The patient has no reported drug allergies. MEDICATIONS: The patient was on no routine medications previously but has been taking now ciprofloxacin 500 mg by mouth twice daily and Flagyl 500 mg by mouth three times daily. He has been using some Percocet for pain. MEDICAL HISTORY: Is negative for any prior significant medical issues. SURGICAL HISTORY: His surgical history is significant for colonoscopy in 2015. SOCIAL HISTORY: The patient is single. He uses smokeless tobacco and drinks alcohol occasionally. FAMILY HISTORY: Shows no significant heritable medical conditions. REVIEW OF SYSTEMS: His review of systems shows no heart, lung or endocrine problems. He denies dysuria or hematuria and has no history of deep venous thrombosis (DVT) or pulmonary embolus. He had a shoulder injury from a fall in April and was seen recently for some physical therapy. He does have some low back discomfort. PHYSICAL EXAMINATION: Physical exam shows a pleasant uncomfortable-appearing middle-aged man. He is alert and oriented. Vital signs: In the emergency department showed a temperature of 99.6, pulse of 71 and a blood pressure of 125/82. Sclerae are anicteric. Mucous membranes are moist. Neck is supple without mass. Heart exam shows a regular rate and rhythm. The lungs are clear. The abdomen is flat and soft. He has bowel sounds present. Palpation reveals no significant abdominal tenderness. Lower extremities are without edema. He has palpable peripheral pulses. LABORATORY STUDIES: Today include a CBC that shows a white count of 8, hemoglobin 14, hematocrit of 41 and platelet count of 429,000. His differential count shows 76% neutrophils, 11% lymphocytes and 11% monocytes. Chemistry profile shows normal electrolytes with the exception of a carbon dioxide of only 20 with a BUN of 10, creatinine 1.0 and a glucose of 103. CT scan from last night was interpreted by the radiologist as showing a pelvic abscess with a fluid level approximately 6.2 cm in diameter which appeared slightly increased when compared to prior study. The previously noted sigmoid diverticulitis appeared slightly improved. There were no other new abnormalities. IMPRESSION: 1. Diverticulitis of the sigmoid colon with pericolonic abscess now increased in size. PLAN: I reviewed the new CT scan with Dr. Enriquez of the department of radiology. He thinks there may be an opportunity for a percutaneous drainage and indicated that he would be willing to attempt this though he cannot be certain that the small bowel will remain out of the way enough to allow this to take place. If a percutaneous drainage is not possible then I believe a laparoscopy and placement of the drain would be appropriate. The patient was counseled regarding the plan to readmit him to the hospital for further treatment with drainage of his abscess. He had an opportunity to ask questions. He desires to proceed. He will be placed back on intravenous piperacillin tazobactam. He has been nothing by mouth since last night other than perhaps a small amount of water this morning and we will try to proceed with the drainage today.
[2018-06-02 16:45] VITALS: BP 133/78
[2018-06-02] MEDS: PANTOPRAZOLE 40MG INJ (PROTONIX) (C9113) IV SCH (17:22)
[2018-06-02] MEDS: LR 1,000 ML IV SCH ×2 (17:23→20:42)
[2018-06-02] MEDS: PERCOCET 5MG/325MG TAB PO PRN ×2 (18:47→23:42)
[2018-06-02 22:00] VITALS: BP 128/79
[2018-06-02] MEDS: PIPERACILLIN/TAZOBACTAM SOD 3.375 GM in D5W MINI-BAG PLUS 50 ML IV SCH (22:18)
[2018-06-03] MEDS: PIPERACILLIN/TAZOBACTAM SOD 3.375 GM in D5W MINI-BAG PLUS 50 ML IV SCH ×4 (04:28→22:02)
[2018-06-03 06:00] VITALS: BP 126/83
[2018-06-03] MEDS: PANTOPRAZOLE 40MG INJ (PROTONIX) (C9113) IV SCH (09:02)
[2018-06-03] MEDS: PERCOCET 5MG/325MG TAB PO PRN ×3 (09:18→22:01)
--- NOTE | 2018-06-03 10:35 | REP ---
CT-guided pelvic abscess drain The procedure was performed under the direct supervision of Dr. enriquez. The patient has a history of a central pelvic abscess measuring approximately 6.2 cm seen on a previous CT scan performed on 06/01/2018. The risks and benefits of the procedure were explained to the patient and informed consent was obtained. The pelvic abscess was localized using CT guidance. The skin was prepped and draped in a sterile fashion. 1% lidocaine was used as a local anesthetic. Using CT guidance a 10-[place] APDL catheter was inserted using trocar technique. 50 ml of brown colored fluid was withdrawn and sent to lab for analysis. The abscess cavity was flushed with four 10 ml aliquots of sterile saline. The catheter was affixed to the skin and a sterile dressing was applied. The catheter was connected to a gravity drainage bag. The patient tolerated the procedure well and there were no immediate complications. Reviewed by LORENA Jimenez 06/02/2018 04:16 P Electronically Signed by Rowdy Enriquez MD 06/03/2018 10:27 A
[2018-06-03] MEDS: LR 1,000 ML IV SCH (11:36)
[2018-06-03 14:00] VITALS: BP 136/88
[2018-06-03] MEDS ORDERED: ACETAMINOPHEN TAB 650MG DOSE (2X325MG) PO PRN (16:45)
[2018-06-04] MEDS: PIPERACILLIN/TAZOBACTAM SOD 3.375 GM in D5W MINI-BAG PLUS 50 ML IV SCH ×2 (04:05→08:59)
[2018-06-04 06:00] VITALS: BP 110/70
[2018-06-04] MEDS: PANTOPRAZOLE 40MG INJ (PROTONIX) (C9113) IV SCH (08:59)
== END 2018-06-04 11:55 | disposition home or self-care (01) | DRG 244 ==
LOC: M ED 10:32 → M ED INP 12:42 → M MS5PR 16:45
PROVIDERS: ADMIT Surgery; ATTEND Surgery
PROC: 0W9J30Z Drainage of Pelvic Cavity with Drainage Device, Percutaneous Approach (ICD-10-PCS; principal; 2018-06-02)
DX: K57.20 Diverticulitis of large intestine with perforation and abscess without bleeding (principal)

== ENCOUNTER → 2019-07-04 | Outpatient (CLI) | payer BC, OTHER ==
[~2019-07-04] MED LIST changes: +CIPR500T3 PO; +HYDR-3715 PO; +IBUPOTC PO; +METR-265 PO; +NORC1TAB7 PO; -NORCOTAB PO; +VITMTA PO
[2019-07-04 08:08] LABS: ALBUMIN 3.7 GM/DL (3.2-5.2); ALT/SGPT 31 U/L (12-78); BILIRUBIN,TOTAL 0.4 MG/DL (0.2-1.0); BLOOD UREA NITROGEN 12 MG/DL (7-18); CALCIUM LEVEL 8.4 MG/DL (8.5-10.1); CARBON DIOXIDE LEVEL 26 MEQ/L (21-32); CHLORIDE LEVEL 106 MEQ/L (98-107); CHOLESTEROL LEVEL 137 MG/DL (<200); CHOLESTEROL RISK RATIO 3.044 (<5); CREATININE FOR GFR 1.07 MG/DL (0.70-1.30); GLOMERULAR FILTRATION RATE > 60.0 (>56); GLUCOSE, FASTING 98 MG/DL (70-100); HDL CHOLESTEROL 45 MG/DL (>40); LDL CHOLESTEROL 81 MG/DL (<100); NON-HDL-C 92 MG/DL; POTASSIUM SERUM 3.8 MEQ/L (3.5-5.1); SODIUM LEVEL 136 MEQ/L (136-145); TOTAL PROTEIN 6.8 GM/DL (6.4-8.2); TRIGLYCERIDES LEVEL 53 MG/DL (<150)
[2019-07-04 09:45] LABS: TOTAL 25(OH) VITAMIN D 32.5 NG/ML (30.0-100.0)
== END ==
LOC: M LAB 07:09
PROVIDERS: ATTEND Nurse Practitioner Family
DX: E78.49 Other hyperlipidemia (principal); Z12.5 Encounter for screening for malignant neoplasm of prostate; E55.9 Vitamin D deficiency, unspecified
CPT/HCPCS: 36415; 80053; 80061; 82306; G0103

== ENCOUNTER → 2020-05-24 | Outpatient (REF) | payer OTHER ==
[2020-05-24 18:58] LABS: ALBUMIN 4.1 GM/DL (3.2-5.2); ALT/SGPT 26 U/L (12-78); BILIRUBIN,TOTAL 0.8 MG/DL (0.2-1.0); BLOOD UREA NITROGEN 13 MG/DL (7-18); CALCIUM LEVEL 9.5 MG/DL (8.5-10.1); CARBON DIOXIDE LEVEL 30 MEQ/L (21-32); CHLORIDE LEVEL 104 MEQ/L (98-107); CREATININE FOR GFR 1.09 MG/DL (0.70-1.30); GLOMERULAR FILTRATION RATE > 60.0 (>56); GLUCOSE, FASTING 90 MG/DL (70-100); SODIUM LEVEL 138 MEQ/L (136-145); TOTAL PROTEIN 7.5 GM/DL (6.4-8.2)
[2020-05-24 19:04] LABS: TOTAL 25(OH) VITAMIN D 30.2 NG/ML (30.0-100.0)
== END ==
LOC: M SFHCPLAZ 15:21
PROVIDERS: ATTEND Nurse Practitioner Family
DX: Z00.00 Encounter for general adult medical examination without abnormal findings (principal); Z12.5 Encounter for screening for malignant neoplasm of prostate; R79.89 Other specified abnormal findings of blood chemistry

== ENCOUNTER → 2021-12-10 | Outpatient (CLI) | payer BC, OTHER ==
[2021-12-10 15:35] LABS: BASO % 0.5 % (0.0-1.0); EOS # 0.1 10^3/uL (0.0-0.5); HEMATOCRIT 48.1 % (42.0-52.0); HEMOGLOBIN 16.3 g/dl (13.5-17.5); LYMPH # 1.3 10^3/uL (1.5-5.0); MEAN CORPUSCULAR HGB CONC 33.9 g/dl (32.0-36.5); MEAN CORPUSCULAR VOLUME 91.4 fl (80.0-96.0); MONO # 0.8 10^3/uL (0.0-0.8); MONO % 10.4 % (2.0-8.0); NEUTROPHILS # 5.7 10^3/uL (1.5-8.5); NEUTROPHILS % 71.5 % (36.0-66.0); PLATELET COUNT, AUTOMATED 342 10^3/uL (150-450); RED BLOOD COUNT 5.26 10^6/uL (4.30-6.10)
[2021-12-10 17:27] LABS: HEMOGLOBIN A1c 5.3 %
[2021-12-10 19:13] LABS: CREATININE, URINE 74.9 MG/DL; MALB URINE SIEMENS 5.4 MG/L; MAU/CREAT RATIO 7.2 MCG/MG (0.0-30.0)
[2021-12-10 20:47] LABS: ALBUMIN 3.5 GM/DL (3.2-5.2); ALT/SGPT 25 U/L (12-78); BILIRUBIN,TOTAL 0.8 MG/DL (0.2-1.0); BLOOD UREA NITROGEN 12 MG/DL (7-18); C REACTIVE PROTEIN QUANTITATIV 3.27 MG/DL (0.00-0.30); CALCIUM LEVEL 9.2 MG/DL (8.5-10.1); CARBON DIOXIDE LEVEL 26 MEQ/L (21-32); CHLORIDE LEVEL 103 MEQ/L (98-107); CHOLESTEROL LEVEL 153 MG/DL (<200); CHOLESTEROL RISK RATIO 3.825 (<5); CREATININE FOR GFR 0.92 MG/DL (0.70-1.30); FREE T4 1.24 NG/DL (0.76-1.46); GLOMERULAR FILTRATION RATE > 60.0 (>56); GLUCOSE, FASTING 89 MG/DL (70-100); HDL CHOLESTEROL 40 MG/DL (>40); LDL CHOLESTEROL 101 MG/DL (<100); NON-HDL-C 113 MG/DL; POTASSIUM SERUM 4.4 MEQ/L (3.5-5.1); SODIUM LEVEL 136 MEQ/L (136-145); TOTAL PROTEIN 7.2 GM/DL (6.4-8.2); TRIGLYCERIDES LEVEL 59 MG/DL (<150)
[2021-12-10 20:54] LABS: TOTAL 25(OH) VITAMIN D 31.8 NG/ML (30.0-100.0)
[2021-12-10 20:55] LABS: VITAMIN B12 LEVEL 539 PG/ML (247-911)
== END ==
LOC: M PLALAB 11:42
PROVIDERS: ATTEND Internal Medicine Hematology
DX: E66.9 Obesity, unspecified (principal)
CPT/HCPCS: 36415; 80053; 80061; 82043; 82306; 82607; 83036; 84439; 84443; 85025; 86140; G0103

== ENCOUNTER → 2021-12-23 | Outpatient (CLI) | payer BC, OTHER ==
[~2021-12-23] MED LIST changes: +GASTROGRAFIN SOLUTION 30ML (Q9963) As Ordered ONE; +ISOVUE-370 76% 100ML VIAL As Ordered ONE
== END ==
LOC: M RAD 11:17
PROVIDERS: ATTEND Surgery
DX: K57.32 Diverticulitis of large intestine without perforation or abscess without bleeding (principal); M51.36 Other intervertebral disc degeneration, lumbar region
CPT/HCPCS: 74177; Q9963; Q9967

== ENCOUNTER → 2022-01-26 | Outpatient (CLI) | payer BC, OTHER ==
[~2022-01-26] MED LIST changes: -GASTROGRAFIN SOLUTION 30ML (Q9963) As Ordered ONE
== END ==
LOC: M RAD 08:48
PROVIDERS: ATTEND Surgery
DX: K65.1 Peritoneal abscess (principal)
CPT/HCPCS: 72193; Q9967

== ENCOUNTER → 2022-06-07 | Outpatient (CLI) | payer BC, OTHER ==
[~2022-06-07] MED LIST changes: +IBUP80TA PO; -ISOVUE-370 76% 100ML VIAL As Ordered ONE
== END ==
LOC: M LABSMTC 10:34
PROVIDERS: ATTEND Anesthesiology
DX: Z01.812 Encounter for preprocedural laboratory examination (principal); Z20.822 Contact with and (suspected) exposure to COVID-19

== ENCOUNTER 2022-06-10 08:25 | Day surgery (SDC) | payer BC, OTHER ==
[~2022-06-10] VITALS: Ht 182.9 cm; Wt 99.8 kg
[~2022-06-10 08:25] MED LIST changes: +NS 1,000 ML IV ONE
[2022-06-10] MEDS ORDERED: LIDOCAINE 2% 100MG/5ML SDV (FOR ANES.) As Ordered ONE (09:34)
[2022-06-10] MEDS ORDERED: propofoL 200 MG/20 ML VIAL As Ordered ONE ×2 (09:34→09:57)
[2022-06-10 10:45] VITALS: BP 130/88
== END 2022-06-10 10:50 | disposition home or self-care (01) ==
LOC: M OPP 08:25
PROVIDERS: ATTEND Surgery
DX: K57.32 Diverticulitis of large intestine without perforation or abscess without bleeding (principal); K57.30 Diverticulosis of large intestine without perforation or abscess without bleeding; F17.220 Nicotine dependence, chewing tobacco, uncomplicated; Z80.1 Family history of malignant neoplasm of trachea, bronchus and lung